=== PATIENT | female | born 1985 | race Two or more races ===

== ENCOUNTER 2017-04-25 11:42 | Outpatient (CLI) | payer BC | END 2017-04-25 23:59 | disposition home or self-care (01) | LOC: RAD 11:42 | PROVIDERS: ATTEND Internal Medicine | DX: M25.541 Pain in joints of right hand (principal); M79.644 Pain in right finger(s) | CPT/HCPCS: 73120-TC ==

== ENCOUNTER 2017-09-26 14:41 | Outpatient (CLI) | payer BC ==
[2017-09-26 16:08] LABS: BASOPHILS % (AUTO) 0.2 % (0.0-2.0); EOSINOPHILS % (AUTO) 0.5 % (0.0-6.0); HEMATOCRIT 39 % (33-45); HEMOGLOBIN 13.1 g/dL (11.5-14.8); LYMPHOCYTES # (AUTO) 1.6 /CMM (0.8-4.8); LYMPHOCYTES % (AUTO) 17.8 % (20.0-44.0); MEAN CORPUSCULAR HEMOGLOBIN 31 PG (26.0-33.0); MEAN CORPUSCULAR HGB CONC 34 g/dl (31.0-36.0); MEAN CORPUSCULAR VOLUME 90 fL (82-100); MONOCYTES # (AUTO) 0.4 /CMM (0.1-1.30); MONOCYTES % (AUTO) 4.5 % (2.0-12.0); NEUTROPHILS # (AUTO) 7.1 /CMM (1.8-8.9); PLATELET COUNT (AUTO) 219 /CMM (150-450); RDW COEFFICIENT OF VARIATION 12.1 (11.5-15.0); RED BLOOD CELL COUNT(AUTO) 4.32 MIL/uL (4.0-5.2); WHITE BLOOD COUNT (AUTO) 9.2 K/uL (4.3-11.0)
== END 2017-09-26 23:59 | disposition home or self-care (01) ==
LOC: LAB 14:41
PROVIDERS: ATTEND Obstetrics & Gynecology
DX: N91.2 Amenorrhea, unspecified (principal)
CPT/HCPCS: 36415; 84144; 84702-TC; 85025-TC

== ENCOUNTER 2017-10-03 06:55 | Emergency (ER) | payer BC ==
[~2017-10-03] VITALS: Ht 160 cm; Wt 54.9 kg
--- NOTE | 2017-10-03 07:10 | NUR ---
PRESENTS TO ER C/O VAGINAL SPOTTING SINCE 0600 THIS MORNING. PATIENT 6 WEEKS , A0. A/OX 4. BREATHING EVEN AND UNLABORED. NO SOB. NO DISTRESS NOTED. SAFETY AND COMFORT MEASURES IN PLACE. PATIENT PLACED IN GOWN. AWAITING MD ORDERS.
--- NOTE | 2017-10-03 07:15 | NUR ---
URINE OBTAINED AND SENT TO LAB.
--- NOTE | 2017-10-03 07:20 | NUR ---
CALLED RADIOLOGY --- ETA FOR US TECH IS 1HR
[2017-10-03 07:26] LABS: APPEARANCE,URINE CLEAR (CLEAR); BILIRUBIN,URINE NEGATIVE (NEGATIVE); BLOOD, URINE 3+ Ery/uL (NEGATIVE); COLOR,URINE YELLOW (YELLOW); KETONES,URINE NEGATIVE (NEGATIVE); LEUKOCYTE ESTERASE ,URINE 2+ (NEGATIVE); NITRITE, URINE NEGATIVE (NEGATIVE); PROTEIN,URINE NEGATIVE (NEGATIVE); UGLUCOSE NEGATIVE (NEGATIVE); UROBILINOGEN,URINE 0.2 EU/dL (0.2)
[2017-10-03 07:34] LABS: BACTERIA,URINE Rare /HPF (None Seen); SQUAMOUS EPITHELIAL CELL,UR Moderate /HPF (None Seen); WBC,URINE 21-50 /HPF (0-3)
[2017-10-03 07:42] LABS: BASOPHILS % (AUTO) 0.3 % (0.0-2.0); EOSINOPHILS # (AUTO) 0.1 /CMM (0.0-0.7); EOSINOPHILS % (AUTO) 0.9 % (0.0-6.0); HEMATOCRIT 35 % (33-45); HEMOGLOBIN 11.9 g/dL (11.5-14.8); LYMPHOCYTES # (AUTO) 1.7 /CMM (0.8-4.8); MEAN CORPUSCULAR HEMOGLOBIN 31 PG (26.0-33.0); MEAN CORPUSCULAR HGB CONC 34 g/dl (31.0-36.0); MEAN CORPUSCULAR VOLUME 89 fL (82-100); MONOCYTES # (AUTO) 0.4 /CMM (0.1-1.30); MONOCYTES % (AUTO) 6.2 % (2.0-12.0); NEUTROPHILS # (AUTO) 4.7 /CMM (1.8-8.9); NEUTROPHILS % (AUTO) 67.6 % (43.0-81.0); PLATELET COUNT (AUTO) 171 /CMM (150-450); RDW COEFFICIENT OF VARIATION 12.1 (11.5-15.0); RED BLOOD CELL COUNT(AUTO) 3.91 MIL/uL (4.0-5.2); WHITE BLOOD COUNT (AUTO) 6.9 K/uL (4.3-11.0)
--- NOTE | 2017-10-03 08:23 | NUR ---
US TECH AT BEDSIDE.
[2017-10-03 09:32] VITALS: BP 122/72
--- NOTE | 2017-10-03 09:34 | NUR ---
Patient discharged to home in stable condition. Written and verbal after care instructions given. Patient verbalizes understanding of instruction.
== END 2017-10-03 09:33 | disposition home or self-care (01) ==
LOC: ER 06:58
DX: O20.8 Other hemorrhage in early pregnancy (principal); O23.41 Unspecified infection of urinary tract in pregnancy, first trimester; Z3A.01 Less than 8 weeks gestation of pregnancy
CPT/HCPCS: 36415; 76856; 81001; 84702; 85025; 87086; 99285; A4606; Z7610; 81000-TC

== ENCOUNTER 2017-11-14 15:57 | Outpatient (CLI) | payer BC ==
[2017-11-14 16:54] LABS: BASOPHILS % (AUTO) 0.1 % (0.0-2.0); EOSINOPHILS # (AUTO) 0.1 /CMM (0.0-0.7); EOSINOPHILS % (AUTO) 0.5 % (0.0-6.0); HEMATOCRIT 37 % (33-45); LYMPHOCYTES # (AUTO) 1.3 /CMM (0.8-4.8); MEAN CORPUSCULAR HEMOGLOBIN 31 PG (26.0-33.0); MEAN CORPUSCULAR HGB CONC 35 g/dl (31.0-36.0); MEAN CORPUSCULAR VOLUME 88 fL (82-100); MONOCYTES # (AUTO) 0.4 /CMM (0.1-1.30); MONOCYTES % (AUTO) 3.6 % (2.0-12.0); NEUTROPHILS # (AUTO) 8.6 /CMM (1.8-8.9); NEUTROPHILS % (AUTO) 82.8 % (43.0-81.0); PLATELET COUNT (AUTO) 217 /CMM (150-450); RDW COEFFICIENT OF VARIATION 12.6 (11.5-15.0); RED BLOOD CELL COUNT(AUTO) 4.22 MIL/uL (4.0-5.2); WHITE BLOOD COUNT (AUTO) 10.4 K/uL (4.3-11.0)
[2017-11-16 12:11] LABS: *HGBFR CHEMOGLOBIN SOLUBILITY Negative (Negative); *HGBFRC HEMOGLOBIN A 97.3 % (96.4-98.8); *HGBFRC HEMOGLOBIN A2 2.7 % (1.8-3.2)
== END 2017-11-14 23:59 | disposition home or self-care (01) ==
LOC: LAB 15:57
PROVIDERS: ATTEND Obstetrics & Gynecology
DX: Z33.1 Pregnant state, incidental (principal); Z20.2 Contact with and (suspected) exposure to infections with a predominantly sexual mode of transmission; Q99.2 Fragile X chromosome; E84.0 Cystic fibrosis with pulmonary manifestations
CPT/HCPCS: 36415; 83021; 84443-TC; 85025-TC; 85660; 86592; 86803; 86850-TC; 86900-TC

== ENCOUNTER 2018-03-13 11:56 | Outpatient (CLI) | payer BC ==
[2018-03-13 14:06] LABS: BASOPHILS % (AUTO) 0.1 % (0.0-2.0); EOSINOPHILS % (AUTO) 0.5 % (0.0-6.0); HEMATOCRIT 33 % (33-45); HEMOGLOBIN 11.5 g/dL (11.5-14.8); LYMPHOCYTES # (AUTO) 1.7 /CMM (0.8-4.8); LYMPHOCYTES % (AUTO) 13.6 % (20.0-44.0); MEAN CORPUSCULAR HGB CONC 35 g/dl (31.0-36.0); MEAN CORPUSCULAR VOLUME 91 fL (82-100); MONOCYTES # (AUTO) 0.7 /CMM (0.1-1.30); MONOCYTES % (AUTO) 5.3 % (2.0-12.0); NEUTROPHILS # (AUTO) 10.4 /CMM (1.8-8.9); NEUTROPHILS % (AUTO) 80.5 % (43.0-81.0); PLATELET COUNT (AUTO) 149 /CMM (150-450); RDW COEFFICIENT OF VARIATION 12.8 (11.5-15.0); RED BLOOD CELL COUNT(AUTO) 3.67 MIL/uL (4.0-5.2); WHITE BLOOD COUNT (AUTO) 12.9 K/uL (4.3-11.0)
== END 2018-03-13 23:59 | disposition home or self-care (01) ==
LOC: LAB 11:56
PROVIDERS: ATTEND Obstetrics & Gynecology
DX: Z33.1 Pregnant state, incidental (principal); N91.0 Primary amenorrhea
CPT/HCPCS: 36415; 82947-TC; 85025-TC

== ENCOUNTER 2018-08-07 12:29 | Outpatient (CLI) | payer BC ==
[2018-08-07 13:14] LABS: BASOPHILS % (AUTO) 0.3 % (0.0-2.0); EOSINOPHILS % (AUTO) 1.2 % (0.0-6.0); HEMATOCRIT 38 % (33-45); HEMOGLOBIN 12.7 g/dL (11.5-14.8); LYMPHOCYTES # (AUTO) 1.3 /CMM (0.8-4.8); LYMPHOCYTES % (AUTO) 27.6 % (20.0-44.0); MEAN CORPUSCULAR HGB CONC 33 g/dl (31.0-36.0); MEAN CORPUSCULAR VOLUME 88 fL (82-100); MONOCYTES # (AUTO) 0.3 /CMM (0.1-1.30); MONOCYTES % (AUTO) 5.8 % (2.0-12.0); NEUTROPHILS % (AUTO) 65.1 % (43.0-81.0); PLATELET COUNT (AUTO) 191 /CMM (150-450); RDW COEFFICIENT OF VARIATION 12.7 (11.5-15.0); RED BLOOD CELL COUNT(AUTO) 4.33 MIL/uL (4.0-5.2); WHITE BLOOD COUNT (AUTO) 4.7 K/uL (4.3-11.0)
[2018-08-07 13:46] LABS: ALANINE AMINOTRANSFERASE 23 U/L (12-78); ALBUMIN 3.9 g/dL (3.4-5.0); ALKALINE PHOSPHATASE 52 U/L (46-116); ASPARTATE AMINOTRANSFERASE 17 U/L (15-37); BILIRUBIN,TOTAL 0.5 mg/dL (0.2-1.0); CALCIUM, SERUM 9.3 mg/dL (8.5-10.1); CARBON DIOXIDE 28 mmol/L (21-32); CHLORIDE 103 mmol/L (98-107); CREATININE 0.8 mg/dL (0.6-1.3); GLUCOSE 95 mg/dL (74-106); SODIUM SERUM 139 mmol/L (136-145); TOTAL PROTEIN, SERUM 7.1 g/dL (6.4-8.2); UREA NITROGEN, BLOOD 11 mg/dL (7-18)
[2018-08-07 13:55] LABS: FREE T4 (FREE THYROXINE) 1.07 ng/dL (0.76-1.46); THYROID STIMULATING HORMONE 0.709 uIU/mL (0.358-3.74)
[2018-08-07 13:58] LABS: C-REACTIVE PROTEIN < 0.2 mg/dL (0.0-0.9)
== END 2018-08-07 23:59 | disposition home or self-care (01) ==
LOC: LAB 12:29
PROVIDERS: ATTEND Internal Medicine
DX: F53.0 Postpartum depression (principal)
CPT/HCPCS: 36415; 80053-TC; 84439-TC; 84443-TC; 85025-TC; 86140-TC